=== PATIENT | male | born 1980 | race Caucasian/White ===

== ENCOUNTER 2023-02-12 14:39 | Emergency (ER) | payer OTHER, SELFPAY ==
[2023-02-12 14:40] VITALS: BP 156/78; PULSE 78; RESP 14; TEMP 36.1; O2SAT 98; BMI 28.0
--- NOTE | 2023-02-12 14:53 | EX.ED.DYSGE1 ---
HPI History of Present Illness Chief Complaint: Other, Pain/Inj Narrative Narrative: 42-year-old male here with burning sensation in the neck and mid thigh area. He denies any trauma, recent injury. He denies any neck pain, stiffness. He notes feeling a transient flushing sensation prior to arrival. Denies any chest pain or shortness of breath denies any trouble swallowing, sore throat. Denies any recent illnesses. Denies any focal numbness weakness or loss sensation in the bilateral upper extremities. He denies any dysuria. Denies concern for STDs. Denies any testicular tenderness. Denies history of diabetes. Denies any trouble with urination, change in bowel or bladder habits. Denies any abdominal pain denies any fevers fatigue or weight loss PFSH PFSH Medical History no medical history Home Medications buprenorphine 8 mg-naloxone 2 mg sublingual film (Suboxone) 1 film buccal DAILY 02/12/23 [History Last Taken Unknown] Allergy/AdvReac Type Severity Reaction Status Date / Time No Known Allergies Allergy Verified 02/12/23 14:42 Surgical History no surgical history Social History Smoking Status: Current every day smoker tobacco type: cigarettes ROS ROS ED ROS Narrative Constitutional: Denies fever HEENT: Denies sore throat Neck: Denies neck pain, endorses neck burning Cardiovascular: Denies chest pain, syncope Respiratory: Denies shortness of breath GI: Denies nausea vomiting or abdominal pain : Denies changes in urinary habits, endorses burning sensation in bilateral inner thighs Musculoskeletal: Denies muscle or joint pain Neurologic: Denies numbness weakness or loss of sensation Skin denies rash EXAM Physical Exam Narrative Exam Narrative: Nursing triage notes reviewed, Vital signs reviewed Constitutional: please see mdm HENT: MMM, uvula midline, no pharyngeal edema erythema or exudates, patient is controlling secretions and speaking in full sentences Eyes: Pupils equal round and reactive to light, Extraocular muscles intact Neck: No stridor, no JVD, full neck ROM, no carotid bruits Lungs: Clear to auscultation, No wheezing or rales. No increased work of breathing, no conversational dyspnea, no accessory muscle use, no nasal flaring. No respiratory distress noted Heart: Regular rate and rhythm, No murmurs, No rubs and No gallops, 2+ distal pulses (radial, femoral, posterior tibial) in all extremities Abdomen: Soft, there is no tenderness, rigidity, rebound or guarding, no obvious peritoneal signs, no palpable pulsatile abdominal masses, no auscultated abdominal bruit : No CVAT Extremities: No edema, full range of motion in bilateral upper and lower extremity, no deformity, Neuro: No focal neurological deficits, cranial nerves II through XII intact, 5/5 strength in all extremities. Intact sensation to light touch in all extremities, 2+ reflexes bilateral patella dens. Normal gait. No ataxia. Intact 5/5 strength with ok sign (median), intact finger abduction (ulnar) intact wrist extension (radial n). Intact sensation in the radial, ulnar, and median nerve distributions. Skin: No rash or lesions noted Const Vital Signs: 02/12/23 14:40 02/12/23 15:04 Temperature 97.0 F L Temperature Source Temporal Pulse Rate 78 Respiratory Rate 14 Respiratory Effort Normal Non-Labored Respiratory Pattern Normal Blood Pressure 156/78 H Blood Pressure Mean 104 Pulse Ox 98 Oxygen Delivery Method Room Air MDM MDM MDM Narrative Medical decision making narrative: Chief Complaint: External records reviewed: No recent ED visits, no recent advanced imaging the involved extremity MDM: Patient was hemodynamically stable, afebrile and nontoxic-appearing. Physical exam was benign and did not display any signs of trauma, focal bony abnormalities of the cervical spine, carotid bruits or other vascular abnormalities of the neck, no focal neurologic deficits noted in the bilateral upper extremities. No focal weakness or numbness. I obtained an EKG given the patient reported feeling flushed. EKG was benign nonischemic with no signs of arrhythmia, WPW, ARVD or other signs explain the sensation. He had full range of motion full-strength full sensation in all sensory dermatomes of the upper extremity. In terms of patient's burning sensation in his thighs there is no signs of tinea cruris, no signs of Anat's gangrene, there is no testicular tenderness, abnormal testicular lie or signs of overlying lesion or skin infection. There is no clear etiology for the patient's presentation today. He is stable vitals and nonspecific benign exam I have no indication for advanced testing, laboratory work-up or further ED evaluation. I gave the patient instructions to take oral pain medicine at home and follow-up with primary care physician for reevaluation and further management. He was told to return to the emergency department immediately if symptoms change or worsen for reevaluation. The patient agreed to return immediately or to follow with his primary care physicians at the next available appointment. Factors affecting care: None Social determinants of health: None History obtained from others: None Shared decision making: I will have a discussion with the patient and or visitors regarding risk/benefits of further testing or admission. They will be made aware of of the risk/benefits inherent in this decision they will be given the opportunity to voice understanding. Consults: None Lab Data Lab results narrative: EKG with normal sinus rhythm, normal axis, no intervals, no STEMI Discharge Plan Triage Chief Complaint: Other, Pain/Inj ED Provider: Jovanny Villalobos Dx/Rx/DC Orders Clinical Impression: Hyperesthesia Prescriptions: No Action buprenorphine-naloxone [Suboxone] 8-2 mg Film 1 film BUCCAL DAILY Primary Care Provider: Care Physician,No Primary Referrals: Rad Orellana MD [Med Staff - Active Staff] - Care Physician,No Primary [Primary Care Provider] - Activity Restrictions/Additional Instructions: Thank you for trusting us with your care today! Please take Tylenol (2 pills, 650 mg), ibuprofen (2 pills, 400 mg) every 6 hours as needed for pain and fever control. Please return to the emergency department if your symptoms change or worsen. Please follow with your primary care physician for further outpatient evaluation and management. Disposition Disposition: Home, Self Care
--- NOTE | 2023-02-12 15:28 | NURSING ---
NO OLD EKGS
== END 2023-02-12 15:47 | disposition home or self-care (01) ==
PROVIDERS: Emergency Provider Emergency Medicine; Visit Provider Emergency Medicine
DX: R20.3 Hyperesthesia (principal); F17.210 Nicotine dependence, cigarettes, uncomplicated
CPT/HCPCS: 93005; 99284